=== PATIENT | female | born 1990 | race Asian ===

== ENCOUNTER 2016-12-01 18:15 | Emergency (ER) | payer SELFPAY ==
[2016-12-01 19:08] VITALS: BP 96/65; PULSE 72; TEMP 98.6; BMI 21.2
--- NOTE | 2016-12-01 19:15 | PDOC ---
History of Present Illness - General History Source: Patient Exam Limitations: No Limitations <Tyson Schwartz - Last Filed: 12/01/16 19:47> - General History Source: Patient, Old Records Exam Limitations: No Limitations - History of Present Illness Initial Comments: 12/01/16 19:27 The patient is a 26 year old female with no significant past medical history who presents to the Emergency Department with right foot puncture. The patient states that she was in a store today when she stepped on the metal needle from a store security device. The patient was able to pull the needle out of her foot without any parts of the needle breaking off in her foot. She endorses moderate foot soreness when ambulating. <Kai Syed - Last Filed: 12/01/16 19:50> - General Chief Complaint: Injury Stated Complaint: RIGHT FOOT PUNCTURE Time Seen by Provider: 12/01/16 19:07 Past History - Psycho/Social/Smoking Cessation Hx Anxiety: No Suicidal Ideation: No Smoking History: Never smoked Hx Alcohol Use: No Drug/Substance Use Hx: No Substance Use Type: None <Tyson Schwartz - Last Filed: 12/01/16 19:47> <Kai Syed - Last Filed: 12/01/16 19:50> - Past Medical History Allergies/Adverse Reactions: Allergies Allergy/AdvReac Type Severity Reaction Status Date / Time No Known Allergies Allergy Unverified 12/01/16 19:01 Home Medications: Ambulatory Orders Ciprofloxacin [Cipro -] 500 mg PO Q12H #14 tablet 12/01/16 Review of Systems - Review of Systems Able to Perform ROS?: Yes Comments:: 12/01/16 19:27 GENERAL/CONSTITUTIONAL: No fever or chills. No weakness. HEAD, EYES, EARS, NOSE AND THROAT: No change in vision. No ear pain or discharge. No sore throat. CARDIOVASCULAR: No chest pain or shortness of breath. RESPIRATORY: No cough, wheezing, or hemoptysis. GASTROINTESTINAL: No nausea, vomiting, diarrhea or constipation. GENITOURINARY: No dysuria, frequency, or change in urination. MUSCULOSKELETAL: (+) Right foot pain. No neck or back pain. SKIN: No rash NEUROLOGIC: No headache, vertigo, loss of consciousness, or change in strength/ sensation. ENDOCRINE: No increased thirst. No abnormal weight change. HEMATOLOGIC/LYMPHATIC: No anemia, easy bleeding, or history of blood clots. ALLERGIC/IMMUNOLOGIC: No hives or skin allergy. <Kai Syed - Last Filed: 12/01/16 19:50> *Physical Exam - Vital Signs Last Vital Signs Temp Pulse Resp BP Pulse Ox 98.6 F 72 15 96/65 99 12/01/16 18:57 12/01/16 18:57 12/01/16 18:57 12/01/16 18:57 12/01/16 18:57 <Tyson Schwartz - Last Filed: 12/01/16 19:47> - Vital Signs Last Vital Signs Temp Pulse Resp BP Pulse Ox 98.6 F 72 15 96/65 99 12/01/16 18:57 12/01/16 18:57 12/01/16 18:57 12/01/16 18:57 12/01/16 18:57 - Physical Exam Comments: 12/01/16 19:27 GENERAL: Awake, alert, and fully oriented, in no acute distress HEAD: No signs of trauma EYES: PERRLA, EOMI, sclera anicteric, conjunctiva clear ENT: Auricles normal inspection, hearing grossly normal, nares patent, oropharynx clear without exudates. Moist mucosa NECK: Normal ROM, supple, no lymphadenopathy, JVD, or masses LUNGS: Breath sounds equal, clear to auscultation bilaterally. No wheezes, and no crackles HEART: Regular rate and rhythm, normal S1 and S2, no murmurs, rubs or gallops ABDOMEN: Soft, nontender, normoactive bowel sounds. No guarding, no rebound. No masses EXTREMITIES: (+) 2+ distal pulses, sensation intact. < 2 second capillary refill. Able to move all digits. No obvious wound, dry blood on plantar of foot. Normal range of motion, no edema. No clubbing or cyanosis. NEUROLOGICAL: Cranial nerves II through XII grossly intact. Normal speech, normal gait SKIN: Warm, Dry, normal turgor, no rashes or lesions noted. <Kai Syed - Last Filed: 12/01/16 19:50> Medical Decision Making - Medical Decision Making 12/01/16 19:43 A portion of this note was documented by scribe services under my direction. I have reviewed the details of the note, within reason, and agree with the documentation with the following case summary and management plan written by me. Patient treated in the ED. Nursing notes are reviewed and incorporated into the medical decision-making. Vital signs reviewed. Peripheral IV access obtained by the nurse, laboratory studies are drawn and sent, reviewed and interpreted by myself. Vital Signs Temp Pulse Resp BP Pulse Ox 98.6 F 72 15 96/65 99 12/01/16 18:57 12/01/16 18:57 12/01/16 18:57 12/01/16 18:57 12/01/16 18:57 46-year-old female with no medical history presents with puncture wound to her right foot. Patient was in her departmental store when she actually stepped on a sensor that had sharp needlelike object. It punctured the plantar surface of her right foot which it taken out. Blood but stopped. There is no obvious wound now. This occurred today. She denies pain at this time but her mother sent her to the ED for evaluation. Given the penetration the plantar surface, we'll need to give prophylactic antibiotics again pseudomonas aeruginosa. We'll initiate ciprofloxacin and given to her for week. Tetanus was ordered. Return precautions given. I discussed the physical exam findings, ancillary test results and final diagnoses with the patient. I answered all of the patient's questions. The patient was satisfied with the care received and felt comfortable with the discharge plan and treatment plan. The patient will call their primary care physician within 24 hours to arrange follow-up and will return to the Emergency Department with any new, persistant or worsening symptoms. <Tyson Schwartz - Last Filed: 12/01/16 19:47> *DC/Admit/Observation/Transfer - Discharge Dispostion Admit: No <Tyson Schwartz - Last Filed: 12/01/16 19:47> - Attestations Scribe Attestion: 12/01/16 19:27 Documentation prepared by Kai Syed, acting as medical review specialist for Tyson Schwartz MD <Kai Syed - Last Filed: 12/01/16 19:50> Diagnosis at time of Disposition: Right foot injury Qualifiers: Encounter type: initial encounter Qualified Code(s): S99.921A - Unspecified injury of right foot, initial encounter - Discharge Dispostion Disposition: HOME Condition at time of disposition: Good - Prescriptions Prescriptions: Ciprofloxacin [Cipro -] 500 mg PO Q12H #14 tablet - Referrals Referrals: Amada Donaldson MD [Primary Care Provider] - - Patient Instructions Printed Discharge Instructions: DI for Foot Pain Additional Instructions: Because of your foot injury, it is important that you take your antibiotics. This will help prevent any infection in her foot. Please take 500 mg of ciprofloxacin every 12 hours in next 7 days. You have received tetanus booster today. If he notices any fevers or signs of infection, return to the ER for further evaluation.
[2016-12-01] MEDS ORDERED: DIPHTH,PERTUSS(ACELL),TET 0.5 ML DISP.SYRIN IM ONE (19:17)
[2016-12-01] MEDS ORDERED: CIPROFLOXACIN 500 MG TABLET (RESTRICTED TO ID) PO ONE (19:17)
[2016-12-01] MEDS ORDERED: CIPROFLOXACIN 250 MG TABLET (RESTRICTED TO ID) PO ONE (19:33)
== END 2016-12-01 19:53 | disposition home or self-care (01) ==
LOC: FER 18:15
PROC: 3E0234Z Introduction of Serum, Toxoid and Vaccine into Muscle, Percutaneous Approach (ICD-10-PCS; principal; 2016-12-01)
DX: S99.921A Unspecified injury of right foot, initial encounter (principal); W22.8XXA Striking against or struck by other objects, initial encounter; Y93.89 Activity, other specified; Y92.512 Supermarket, store or market as the place of occurrence of the external cause
CPT/HCPCS: 90715; 99281-25